=== PATIENT | female | born 1975 | race Caucasian/White ===

== ENCOUNTER → 2016-11-23 | Day surgery (SDC) | payer OTHER ==
[~2016-11-23] VITALS: Ht 160 cm; Wt 117.9 kg
[2016-11-23 08:08] VITALS: BP 150/89
[2016-11-23 15:18] VITALS: BP 121/71
== END | disposition home or self-care (01) ==
LOC: DS 07:51 → OR 09:30
PROVIDERS: Surgery
PROC: 0FT44ZZ Resection of Gallbladder, Percutaneous Endoscopic Approach (ICD-10-PCS; principal; 2016-11-23 09:30)
DX: K80.10 Calculus of gallbladder with chronic cholecystitis without obstruction (principal); J45.909 Unspecified asthma, uncomplicated; E66.01 Morbid (severe) obesity due to excess calories; Z68.42 Body mass index [BMI] 45.0-49.9, adult
CPT/HCPCS: J0330; J0690; J1170; J2175; J2250; J2405; J2704; J2710; J3010; J3490; J7120